=== PATIENT | male | born 1935 | race Caucasian/White ===

== ENCOUNTER 2017-08-25 11:03 | Inpatient (IN) | payer MEDICARE ==
[2017-08-25 12:00] LABS: #Lymphocytes 0.6 thou/uL (1.20-3.40); #Monocytes 0.5 thou/uL (0.11-0.59); #Neutrophils 2.4 thou/uL (1.40-6.50); %Eosinophils 0.5 % (0.0-10.0); %Lymphocytes 17.5 % (21.0-51.0); %Monocytes 13.7 % (0.0-10.0); %Neutrophils 67.4 % (42.0-75.0); Hemoglobin 14.2 g/dL (14.0-18.0); Mean Corpuscular HGB CONC 33.5 g/dL (32.0-36.0); Mean Corpuscular Hemoglobin 32.2 pg (27.0-31.0); Mean Corpuscular Volume 96.1 fl (80.0-94.0); Platelet Count 147 thou/uL (130-400); RBC Distribution Width 12.4 % (11.5-14.5); Red Blood Cell (RBC) Count 4.42 mill/uL (4.70-6.10); White Blood Cell (WBC) Count 3.6 thou/uL (4.8-10.8)
[2017-08-25 12:05] LABS: ALT (SGPT) 26 U/L (8-55); AST (SGOT) 33 U/L (5-34); Albumin 3.7 g/dL (3.4-4.8); Alkaline Phosphatase 124 U/L (40-150); Anion Gap 14 mmol/L (10-20); BUN (Urea Nitrogen) 19 mg/dL (8.4-25.7); Bilirubin, Total 0.5 mg/dL (0.2-1.2); CK (CPK) 445 U/L (30-200); Calc. Creatinine Clearance 0 mL/min (70-130); Calcium 8.3 mg/dL (7.8-10.44); Carbon Dioxide 26 mmol/L (23-31); Chloride 94 mmol/L (98-107); Estimated GFR-MDRD 76; Globulin 2.6 g/dL (2.4-3.5); Glucose 97 mg/dL (83-110); Lipase 13 U/L (8-78); Potassium 4.4 mmol/L (3.5-5.1); Protein, Total 6.3 g/dL (5.8-8.1); Sodium 130 mmol/L (136-145); Troponin I 0.037 ng/mL (< 0.028)
[2017-08-25 12:08] LABS: CKMB 8.6 ng/mL (0-6.6)
--- NOTE | 2017-08-25 12:13 | RAD ---
AP VIEW OF THE CHEST: INDICATIONS: History of cough. COMPARISON: Prior exam dated 10/29/2012. FINDINGS: Sternotomy changes are similar. Post CABG changes are similar. No air space consolidation is grossl y evident. Image detail is limited due to respiratory motion artifact. There is scattered degenerat nancy and osteoarthritic change. IMPRESSION: No focal consolidation to suggest pneumonia. POS: [facility]
[2017-08-25] MEDS ORDERED: Aspirin 325 MG TAB ONE (12:33)
[2017-08-25 12:55] LABS: INR-International Normal Ratio 1.3; PTT 45.6 SEC (22.9-36.1)
[2017-08-25] MEDS ORDERED: ISOVUE-370 76%-LOCM 1 ML ONE (13:06)
[2017-08-25 15:04] LABS: Troponin I 0.038 ng/mL (< 0.028)
[2017-08-25 15:42] VITALS: BMI 22.1
[2017-08-25] MEDS ORDERED: Bisacodyl 5 MG TAB PO PRN (16:50)
[2017-08-25] MEDS ORDERED: Senokot 8.6 MG TAB PO PRN (16:50)
[2017-08-25] MEDS: Sodium Chloride 0.9% 1,000 ML IV SCH ×2 (17:48→22:31)
[2017-08-25] MEDS: Warfarin Sodium 3 MG TAB PO SCH (17:49)
[2017-08-25] MEDS ORDERED: Dextromethorphan Polistirex 30 MG/5 ML (89 ML BOTTLE) PO PRN (18:05)
[2017-08-25 18:37] LABS: Troponin I 0.047 ng/mL (< 0.028)
--- NOTE | 2017-08-25 19:04 | CT ---
CT ANGIOGRAM CHEST INCLUDING 3D RENDERING 08/25/17 HISTORY: 82-year-old male with history of prior DVT on anticoagulation which is subtherapeutic. No significant CT evidence for acute pulmonary embolism. No evidence for aortic aneurysm. There are b ilateral mostly linear type parenchymal changes slightly more prominent in the right lower lobe, nons pecific, possibly some mild pneumonitis versus chronic change. There are some bilateral emphysema domenico nges. Old granuloma calcification changes are noted. Small hiatal hernia. No significant pleural effu geo or pericardial effusion. IMPRESSION: No significant CT evidence for acute pulmonary embolism. Some scattered more chronic appearing lung c hanges including some emphysema changes. POS: [facility]
[2017-08-25] MEDS: Famotidine/PF 20 mg/2ml Vial SLOW IVP SCH (20:46)
[2017-08-25] MEDS: Carvedilol 3.125 MG TAB PO SCH (20:48)
[2017-08-25] MEDS: Enoxaparin Sodium 80 MG/0.8 ML SYRINGE SC SCH (20:48)
[2017-08-25 21:29] LABS: Troponin I 0.031 ng/mL (< 0.028)
[2017-08-25 22:48] LABS: Bilirubin Negative (Negative); Blood, Urine Negative (Negative); Clarity CLEAR (Clear); Glucose, Urine (Dipstick) Negative (Negative); Leukocyte Negative (Negative); Nitrite Negative (Negative); Protein, Urine (Dipstick) 30 mg/dL (Neg-Trace); Urobilinogen 0.2 mg/dL (0.2-1.0); pH, Urine 5.5 (5.0-9.0)
[2017-08-25 22:49] LABS: Specific Gravity, Urine 1.058 (1.002-1.036)
[2017-08-25 22:55] LABS: Bacteria/HPF None Seen HPF (None Seen); Hyaline Casts/LPF 0-3 HYALINE CAST LPF (0-3 Hyaline); RBC/HPF 0-3 HPF (0-3); Squamous Epithelial 0-3 HPF (0-3); WBC/HPF 0-3 HPF (0-3)
[2017-08-26] MEDS: Benzonatate 100 MG CAP PO PRN ×3 (00:51→16:36)
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
[2017-08-26 05:26] LABS: INR-International Normal Ratio 1.5; Prothrombin Time 18.9 SEC (12.0-14.7)
[2017-08-26 05:35] LABS: Anion Gap 11 mmol/L (10-20); BUN (Urea Nitrogen) 16 mg/dL (8.4-25.7); Calc. Creatinine Clearance 94 mL/min (70-130); Calcium 7.5 mg/dL (7.8-10.44); Carbon Dioxide 21 mmol/L (23-31); Chloride 99 mmol/L (98-107); Estimated GFR-MDRD Greater than 90; Glucose 79 mg/dL (83-110); Potassium 4.2 mmol/L (3.5-5.1); Sodium 127 mmol/L (136-145)
[2017-08-26 07:13] LABS: #Lymphocytes 0.6 thou/uL (1.20-3.40); #Monocytes 0.4 thou/uL (0.11-0.59); #Neutrophils 1.7 thou/uL (1.40-6.50); %Eosinophils 1.7 % (0.0-10.0); %Lymphocytes 20.5 % (21.0-51.0); %Monocytes 13.1 % (0.0-10.0); %Neutrophils 64.8 % (42.0-75.0); Hemoglobin 12.8 g/dL (14.0-18.0); Mean Corpuscular HGB CONC 32.9 g/dL (32.0-36.0); Mean Corpuscular Hemoglobin 33.2 pg (27.0-31.0); Mean Platelet Volume 6.6 fL (7.4-10.4); PLT Morphology Comment Appears Decreased; Platelet Count 110 thou/uL (130-400); RBC Distribution Width 12.7 % (11.5-14.5); RBC Morphology Normal; Red Blood Cell (RBC) Count 3.86 mill/uL (4.70-6.10); White Blood Cell (WBC) Count 2.7 thou/uL (4.8-10.8)
[2017-08-26] MEDS: Digoxin 0.125 MG TAB PO SCH (10:19)
[2017-08-26] MEDS: Atenolol 25 MG TAB PO SCH (10:22)
[2017-08-26] MEDS: Carvedilol 3.125 MG TAB PO SCH ×2 (10:22→20:10)
[2017-08-26] MEDS: Enoxaparin Sodium 80 MG/0.8 ML SYRINGE SC SCH ×2 (10:22→20:10)
[2017-08-26] MEDS: Famotidine/PF 20 mg/2ml Vial SLOW IVP SCH ×2 (10:22→20:09)
[2017-08-26] MEDS: Doxazosin Mesylate 4 MG TAB PO SCH (10:26)
--- NOTE | 2017-08-26 12:01 | ULT ---
ULTRASOUND VENOUS BILATERAL DOPPLER: HISTORY: Shortness of breath. Evaluate for thrombosis. The patient has a history of deep venous thrombosis, c hronic. The patient also has a history of pulmonary emboli. COMPARISON: None. TECHNIQUE: Real-time, ambriz scale, color Doppler, and spectral analysis of the bilateral common femoral, femoral, proximal portion greater saphenous and deep femoral veins as well as the popliteal and posterior tib ial veins. FINDINGS: There is normal flow, augmentation, and compression of the majority of the veins bilaterally, except for the right posterior tibial vein with a chronic-appearing partial thrombosis. 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 POS: [facility]
[2017-08-26 14:24] LABS: Lactic Acid 1.1 mmol/L (0.5-2.2)
--- NOTE | 2017-08-26 15:23 | CON ---
DATE OF CONSULTATION: 08/26/2017 INDICATION FOR CONSULTATION: This is an 82-year-old patient who was admitted with influenza, has not been feeling well for some time, also history of coronary artery disease, has slight increase in cardiac enzymes. We were asked to see him due to the cardiac enzyme elevation and history of coronary artery disease. HISTORY OF PRESENT ILLNESS: This is a very pleasant 82-year-old gentleman who has been followed by me for quite some time. He has undergone bypass surgery in the past. His last cardiac catheterization was in 2012, at which time, we also evaluated his saphenous vein grafts. He had a saphenous vein graft to the distal right coronary artery which had some distal plaque and the actual cocopah vessel beyond the anastomotic site. He also had a SETH without stenosis, left anterior descending artery and saphenous vein graft to the obtuse marginal, left circumflex valve stenosis, and there was no distal stenosis noted either. Ejection fraction was estimated at 50-55%. He did have a saphenous vein graft to a diagonal branch which was occluded. He has been doing quite well. He was seen in the office last in 10/2016 without complaints. He has had a history of paroxysmal atrial fibrillation in the past and has been on medical management for this. Otherwise, he has been doing stable. He denied any chest pain at this time, but said he has not been feeling well for about a week and had some coughing. He presented to the hospital and was noted on evaluation to have influenza B. His white blood cell count is actually low, he may actually be trending toward pneumonia or sepsis. PAST MEDICAL HISTORY: Significant for dyslipidemia, coronary artery disease, hypertension, bypass surgery, paroxysmal atrial fibrillation. 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 He has had DVT. He has had history of shingles. He has had an ablation of SVT in 2013. He has also had pulmonary vein isolation for atrial fibrillation in 2013. He has had EGD and colonoscopy. ALLERGIES: He has no known drug allergies. MEDICATIONS: Prior to admission; he was taking Coumadin, isosorbide mononitrate , Tylenol Arthritis, pain medicine, carvedilol 6.25 mg half tablet b.i.d., and pravastatin 40 mg a day. REVIEW OF SYSTEMS: Twelve point review of systems is unremarkable except what was noted in the history of present illness for he is not feeling well and coughing. He has also complained of some mild fevers recently. PHYSICAL EXAMINATION: GENERAL: Reveals a well-developed and well-nourished gentleman, who is in no acute distress at this time. He is alert and oriented. HEENT: Shows the head to be normocephalic and atraumatic. Carotid pulses are present. CHEST: Has diffuse wheezing expiratory throughout with some scattered rales. CARDIOVASCULAR: Heart sounds are distant, but he does appear to be regular at this time. There were no significant murmurs, heaves, thrills, bruits, or rubs. ABDOMEN: Soft and nontender. Positive bowel sounds are present. EXTREMITIES: Showed no clubbing or cyanosis. Pedal pulses are present. NEUROLOGIC: The patient appears to be intact. Do not see any focal deficits. SKIN: Warm and dry at this time. LABORATORY DATA: Shows WBC 2.7, hemoglobin 12.8. Sodium is 127, creatinine 0.68. Troponin I was 0.38, increased up to 0.47, down to 0.031. Chest x-ray, no acute changes. INR was 1.5. IMPRESSION: 1. Influenza A with elevated temperature and possible early sepsis or pneumonia , but chest x-ray does not show pneumonia, but it could be becoming septic. He has now being treated with I believe antibiotics and this time, most likely the elevated cardiac enzymes have been due to the fever and overall coughing and his overall illness at this time. His EKG shows a bundle branch block, unable to determine if he has any acute changes, I do not seen any. 2. Hypertension, which is under very good control at this time and is reasonable, is slightly elevated on admission, but appears to also be reasonable. 3. Intermittent atrial fibrillation in which he has actually had some episodes since being here. His INR is 1.5. We are trying to shoot for an INR of 2-3 on this gentleman; however, at this time with the antibiotics on board and his illness, this may increase further. 4. History of coronary artery disease. This appears to be stable at this time. 5. Hypercholesterolemia. We will continue his medications. Previously he had an LDL of 120 and has been placed on pravastatin, but prior to that he had not been taking the medications as ordered. At this time, he appears to be from a cardiac standpoint overall stable. We will be more than happy to continue to follow the patient with you. MTDD
[2017-08-26] MEDS: Sodium Chloride 0.9% 1,000 ML IV SCH (15:53)
--- NOTE | 2017-08-26 15:58 | PDOC.PN ---
- Subjective Encounter Start Date: 08/26/17 Encounter Start Time: 10:57 Subjective: nsg notes rev, nikos ovn - feels generally poorly, did not sleep until 6am -: still has a significant cough productive of sputum, no SOB, no CP - Objective Resuscitation Status: Resuscitation Status FULL:Full Resuscitation Vital Signs & Weight: Vital Signs (12 hours) Temp Pulse Resp BP BP BP BP 08/26/17 15:20 97.1 F L 60 20 129/69 08/26/17 12:48 60 08/26/17 12:10 98.5 F 63 12 146/57 H 100/56 L 120/64 08/26/17 10:36 74 16 08/26/17 10:19 78 08/26/17 08:00 98.8 F 61 20 08/26/17 07:28 98.8 F 61 20 154/69 H 08/26/17 04:23 98.1 F 79 18 143/72 H Pulse Ox 08/26/17 15:20 93 L 08/26/17 12:48 88 L 08/26/17 12:10 92 L 08/26/17 10:36 08/26/17 10:19 08/26/17 08:00 08/26/17 07:28 92 L 08/26/17 04:23 90 L Weight Weight 171 lb 14.4 oz I&O: 08/25/17 08/26/17 08/27/17 06:59 06:59 06:59 Intake Total 2166 Output Total 350 Balance 1816 Result Diagrams: 08/26/17 04:26 08/26/17 04:26 Phys Exam - Physical Examination Constitutional: NAD HEENT: PERRLA, moist MMs Respiratory: no wheezing, no rhonchi mild coarseness Cardiovascular: RRR, no significant murmur, no rub Gastrointestinal: soft, non-tender, no distention, positive bowel sounds Musculoskeletal: no edema, pulses present Neurological: moves all 4 limbs Dx/Plan (1) Leukopenia Code(s): D72.819 - DECREASED WHITE BLOOD CELL COUNT, UNSPECIFIED Status: Acute (2) Influenza Code(s): J11.1 - FLU DUE TO UNIDENTIFIED INFLUENZA VIRUS W OTH RESP MANIFEST Status: Acute (3) Elevated troponin Code(s): R74.8 - ABNORMAL LEVELS OF OTHER SERUM ENZYMES Status: Acute (4) Sepsis Code(s): A41.9 - SEPSIS, UNSPECIFIED ORGANISM Status: Acute - Plan * 82M who initially presented with a CC of progressively worsening cough * influenza B +, was initially felt to be out of the treatment window for Tamiflu, but given progression towards potentially evolving sepsis, will initiate Tamiflu for severity of illness sepsis with leukopenia, hypoxia, source of infection as above * see discussion above * will also initiate levaquin for possibly bronchitis which would not necessarily be visible on radiological imaging * pending sputum cx leukopenia, as above hx CABG, stable elevated troponin * apprec cardiology c/s * close hemodynamic monitoring hx afib * cont with A/C, full dose lovenox while INR <2 (curr 1.5) * currently well rate controlled diet: as harsh dvt ppx: on full a/c activity: as harsh Review of Systems - Medications/Allergies Allergies/Adverse Reactions: Allergies Allergy/AdvReac Type Severity Reaction Status Date / Time Influenza Virus Vaccines Allergy Severe Anaphylaxis Verified 08/25/17 15:36 Medications: Current Medications Acetaminophen (Tylenol) 650 mg PO Q4H PRN PRN Reason: Headache/Fever or Pain Albuterol/Ipratropium (Duoneb) 3 ml NEB [id number] PRN PRN Reason: SOB &/or Wheezing Last Admin: 08/26/17 10:36 Dose: 3 ml Atenolol (Tenormin) 25 mg PO DAILY [facility] Last Admin: 08/26/17 10:22 Dose: 25 mg Benzonatate (Tessalon) 100 mg PO TIDPRN PRN PRN Reason: Cough Last Admin: 08/26/17 10:19 Dose: 100 mg Bisacodyl (Dulcolax) 10 mg PO DAILYPRN PRN PRN Reason: Constipation Carvedilol (Coreg) 3.125 mg PO BID [facility] Last Admin: 08/26/17 10:22 Dose: 3.125 mg Dextromethorphan Polistirix (Delsym 30 Mg/5 Ml 89 Ml Bot) 15 mg PO TID PRN PRN Reason: Cough Last Admin: 08/25/17 20:46 Dose: 15 mg Digoxin (Lanoxin) 0.125 mg PO DAILY [facility] Last Admin: 08/26/17 10:19 Dose: 0.125 mg Doxazosin Mesylate (Cardura) 4 mg PO DAILY [facility] Last Admin: 08/26/17 10:26 Dose: 4 mg Enoxaparin Sodium (Lovenox) 80 mg SC 0900,2100 [facility] Last Admin: 08/26/17 10:22 Dose: 80 mg Famotidine (Pepcid) 20 mg SLOW IVP Q12HR [facility] Last Admin: 08/26/17 10:22 Dose: 20 mg Sodium Chloride (Normal Saline 0.9%) 1,000 mls @ 150 mls/hr IV .Q6H40M [facility] Last Admin: 08/26/17 15:53 Dose: 1,000 mls Miscellaneous Medication (Pharmacy To Dose) 1 each IVPB PRN PRN PRN Reason: Pharmacy to dose Oseltamivir Phosphate (Tamiflu) 75 mg PO BID [facility] Stop: 08/31/17 09:01 Senna (Senokot) 2 tab PO HSPRN PRN PRN Reason: Constipation Sodium Chloride (Flush - Normal Saline) 10 ml IVF Q12HR [facility] Sodium Chloride (Flush - Normal Saline) 10 ml IVF PRN PRN PRN Reason: Saline Flush Warfarin Sodium (Coumadin) 3 mg PO 1700 [facility] Last Admin: 08/25/17 17:49 Dose: 3 mg
[2017-08-26] MEDS: Warfarin Sodium 3 MG TAB PO SCH (16:36)
[2017-08-26] MEDS: Acetaminophen 325 MG TAB PO PRN (16:37)
[2017-08-26] MEDS: Oseltamivir 75 MG CAP PO SCH (20:09)
[2017-08-27] MEDS: Acetaminophen 325 MG TAB PO PRN (01:39)
[2017-08-27] MEDS: Oseltamivir 75 MG CAP PO SCH ×3 (01:40→21:01)
[2017-08-27] MEDS: Famotidine/PF 20 mg/2ml Vial SLOW IVP SCH ×3 (01:40→21:01)
[2017-08-27] MEDS: Sodium Chloride 0.9% 1,000 ML IV SCH ×4 (01:40→18:23)
[2017-08-27] MEDS: Carvedilol 3.125 MG TAB PO SCH ×3 (01:40→21:01)
[2017-08-27] MEDS: Enoxaparin Sodium 80 MG/0.8 ML SYRINGE SC SCH ×3 (01:47→21:01)
[2017-08-27] MEDS: Doxazosin Mesylate 4 MG TAB PO SCH (08:36)
[2017-08-27] MEDS: Digoxin 0.125 MG TAB PO SCH (08:36)
[2017-08-27] MEDS: Atenolol 25 MG TAB PO SCH (08:36)
[2017-08-27 16:33] LABS: #Lymphocytes 0.5 thou/uL (1.20-3.40); #Monocytes 0.3 thou/uL (0.11-0.59); #Neutrophils 1.8 thou/uL (1.40-6.50); %Eosinophils 0.4 % (0.0-10.0); %Lymphocytes 17.9 % (21.0-51.0); %Monocytes 10.8 % (0.0-10.0); %Neutrophils 70.8 % (42.0-75.0); Mean Corpuscular HGB CONC 33.2 g/dL (32.0-36.0); Mean Corpuscular Hemoglobin 33.6 pg (27.0-31.0); Mean Platelet Volume 6.8 fL (7.4-10.4); Platelet Count 100 thou/uL (130-400); RBC Distribution Width 12.6 % (11.5-14.5); Red Blood Cell (RBC) Count 4.17 mill/uL (4.70-6.10); White Blood Cell (WBC) Count 2.6 thou/uL (4.8-10.8)
[2017-08-27 16:44] LABS: Anion Gap 11 mmol/L (10-20); BUN (Urea Nitrogen) 14 mg/dL (8.4-25.7); Calc. Creatinine Clearance 90 mL/min (70-130); Calcium 7.7 mg/dL (7.8-10.44); Carbon Dioxide 24 mmol/L (23-31); Chloride 95 mmol/L (98-107); Estimated GFR-MDRD Greater than 90; Glucose 100 mg/dL (83-110); Potassium 4.3 mmol/L (3.5-5.1); Sodium 126 mmol/L (136-145)
[2017-08-27] MEDS: Warfarin Sodium 3 MG TAB PO SCH (17:26)
--- NOTE | 2017-08-27 22:50 | PDOC.PN ---
- Subjective Encounter Start Date: 08/27/17 Encounter Start Time: 15:00 Subjective: nsg notes rev - some episodic agitation overnight, currently daughters -: in room, endorse baseline emotional and mental status for patient -: pt no new c/o other than feeling weak - Objective Resuscitation Status: Resuscitation Status FULL:Full Resuscitation Vital Signs & Weight: Vital Signs (12 hours) Temp Pulse Resp BP BP BP BP 08/27/17 20:00 98.4 F 68 18 148/71 H 08/27/17 18:50 98.0 F 62 20 156/93 H 08/27/17 15:44 97.5 F L 66 18 151/100 H 08/27/17 12:32 64 156/74 H 162/77 H 171/79 H 08/27/17 11:56 97.4 F L 63 18 167/81 H Pulse Ox 08/27/17 20:00 91 L 08/27/17 18:50 93 L 08/27/17 15:44 96 08/27/17 12:32 08/27/17 11:56 90 L Weight Weight 173 lb 6.4 oz I&O: 08/26/17 08/27/17 08/28/17 06:59 06:59 06:59 Intake Total 2166 4295 1650 Output Total 350 2 Balance 1816 4293 1650 Result Diagrams: 08/27/17 16:05 08/27/17 16:05 Phys Exam - Physical Examination Constitutional: NAD HEENT: PERRLA, moist MMs Respiratory: no rales, no rhonchi end exp wheezing throughout Cardiovascular: RRR, no significant murmur, no rub Gastrointestinal: soft, non-tender, no distention, positive bowel sounds Musculoskeletal: no edema, pulses present Neurological: moves all 4 limbs Psychiatric: A&O x 3 Dx/Plan (1) Leukopenia Code(s): D72.819 - DECREASED WHITE BLOOD CELL COUNT, UNSPECIFIED Status: Acute (2) Influenza Code(s): J11.1 - FLU DUE TO UNIDENTIFIED INFLUENZA VIRUS W OTH RESP MANIFEST Status: Acute (3) Elevated troponin Code(s): R74.8 - ABNORMAL LEVELS OF OTHER SERUM ENZYMES Status: Acute (4) Sepsis Code(s): A41.9 - SEPSIS, UNSPECIFIED ORGANISM Status: Acute - Plan cont current plan of care, plan discussed w/ family, continue antibiotics, respiratory therapy, out of bed/ambulate * 82M who initially presented with a CC of progressively worsening cough * influenza B +, was initially felt to be out of the treatment window for Tamiflu, but given progression towards potentially evolving sepsis, will initiate Tamiflu for severity of illness sepsis with leukopenia, hypoxia, source of infection as above * see discussion above * will also initiate levaquin for possibly bronchitis which would not necessarily be visible on radiological imaging * pending sputum cx leukopenia, as above, continue to monitor hx CABG, stable elevated troponin likely reflective of demand ischemia * apprec cardiology c/s * close hemodynamic monitoring * D/W Dr. Marcano hx afib * cont with A/C, full dose lovenox while INR <2 (not drawn today, will recheck in AM) * currently well rate controlled diet: as harsh dvt ppx: on full a/c activity: as harsh Review of Systems - Medications/Allergies Allergies/Adverse Reactions: Allergies Allergy/AdvReac Type Severity Reaction Status Date / Time Influenza Virus Vaccines Allergy Severe Anaphylaxis Verified 08/25/17 15:36 Medications: Current Medications Acetaminophen (Tylenol) 650 mg PO Q4H PRN PRN Reason: Headache/Fever or Pain Last Admin: 08/27/17 01:39 Dose: 650 mg Albuterol/Ipratropium (Duoneb) 3 ml NEB [id number] PRN PRN Reason: SOB &/or Wheezing Last Admin: 08/27/17 02:29 Dose: 3 ml Atenolol (Tenormin) 25 mg PO DAILY [facility] Last Admin: 08/27/17 08:36 Dose: 25 mg Benzonatate (Tessalon) 100 mg PO TIDPRN PRN PRN Reason: Cough Last Admin: 08/26/17 16:36 Dose: 100 mg Bisacodyl (Dulcolax) 10 mg PO DAILYPRN PRN PRN Reason: Constipation Carvedilol (Coreg) 3.125 mg PO BID [facility] Last Admin: 08/27/17 21:01 Dose: 3.125 mg Dextromethorphan Polistirix (Delsym 30 Mg/5 Ml 89 Ml Bot) 15 mg PO TID PRN PRN Reason: Cough Last Admin: 08/25/17 20:46 Dose: 15 mg Digoxin (Lanoxin) 0.125 mg PO DAILY [facility] Last Admin: 08/27/17 08:36 Dose: 0.125 mg Doxazosin Mesylate (Cardura) 4 mg PO DAILY [facility] Last Admin: 08/27/17 08:36 Dose: 4 mg Enoxaparin Sodium (Lovenox) 80 mg SC 0900,2100 [facility] Last Admin: 08/27/17 21:01 Dose: 80 mg Famotidine (Pepcid) 20 mg SLOW IVP Q12HR [facility] Last Admin: 08/27/17 21:01 Dose: 20 mg Sodium Chloride (Normal Saline 0.9%) 1,000 mls @ 150 mls/hr IV .Q6H40M [facility] Last Admin: 08/27/17 18:23 Dose: 1,000 mls Levofloxacin (Levaquin) 500 mg PO 0600 [facility] Last Admin: 08/27/17 01:40 Dose: 500 mg Miscellaneous Medication (Pharmacy To Dose) 1 each IVPB PRN PRN PRN Reason: Pharmacy to dose Oseltamivir Phosphate (Tamiflu) 75 mg PO BID [facility] Stop: 08/31/17 09:01 Last Admin: 08/27/17 21:01 Dose: 75 mg Prednisone (Prednisone) 50 mg PO QAM-WM [facility] Senna (Senokot) 2 tab PO HSPRN PRN PRN Reason: Constipation Sodium Chloride (Flush - Normal Saline) 10 ml IVF Q12HR [facility] Last Admin: 08/27/17 21:01 Dose: Not Given Sodium Chloride (Flush - Normal Saline) 10 ml IVF PRN PRN PRN Reason: Saline Flush Warfarin Sodium (Coumadin) 3 mg PO 1700 [facility] Last Admin: 08/27/17 17:26 Dose: 3 mg
[2017-08-28 06:17] LABS: #Lymphocytes 0.6 thou/uL (1.20-3.40); #Monocytes 0.3 thou/uL (0.11-0.59); #Neutrophils 1.4 thou/uL (1.40-6.50); %Eosinophils 0.7 % (0.0-10.0); %Lymphocytes 26.4 % (21.0-51.0); %Neutrophils 60.9 % (42.0-75.0); Hemoglobin 13.9 g/dL (14.0-18.0); Mean Corpuscular HGB CONC 33.2 g/dL (32.0-36.0); Mean Corpuscular Hemoglobin 33.1 pg (27.0-31.0); Mean Corpuscular Volume 99.5 fl (80.0-94.0); Mean Platelet Volume 6.9 fL (7.4-10.4); Platelet Count 102 thou/uL (130-400); RBC Distribution Width 12.6 % (11.5-14.5); White Blood Cell (WBC) Count 2.3 thou/uL (4.8-10.8)
[2017-08-28 06:23] LABS: Anion Gap 12 mmol/L (10-20); BUN (Urea Nitrogen) 12 mg/dL (8.4-25.7); Calc. Creatinine Clearance 106 mL/min (70-130); Calcium 7.6 mg/dL (7.8-10.44); Carbon Dioxide 21 mmol/L (23-31); Chloride 97 mmol/L (98-107); Estimated GFR-MDRD Greater than 90; Glucose 75 mg/dL (83-110); Potassium 3.9 mmol/L (3.5-5.1); Sodium 126 mmol/L (136-145)
[2017-08-28 06:30] LABS: INR-International Normal Ratio 1.8; Prothrombin Time 21.6 SEC (12.0-14.7)
[2017-08-28] MEDS: Atenolol 25 MG TAB PO SCH (08:37)
[2017-08-28] MEDS: predniSONE 50 MG TAB PO SCH (08:37)
[2017-08-28] MEDS: Famotidine/PF 20 mg/2ml Vial SLOW IVP SCH ×2 (08:38→21:05)
[2017-08-28] MEDS: Digoxin 0.125 MG TAB PO SCH (08:38)
[2017-08-28] MEDS: Doxazosin Mesylate 4 MG TAB PO SCH (08:38)
[2017-08-28] MEDS: Carvedilol 3.125 MG TAB PO SCH ×2 (08:38→21:05)
[2017-08-28] MEDS: Oseltamivir 75 MG CAP PO SCH ×2 (09:50→21:05)
[2017-08-28] MEDS: Enoxaparin Sodium 80 MG/0.8 ML SYRINGE SC SCH ×2 (09:50→21:05)
--- NOTE | 2017-08-28 12:04 | PDOC.PN ---
- Subjective Encounter Start Date: 08/28/17 Encounter Start Time: 12:03 Subjective: nsg notes rev, nikos ovn, feels like the cough is still just as bad -: otherwise no new c/o - Objective Resuscitation Status: Resuscitation Status FULL:Full Resuscitation Vital Signs & Weight: Vital Signs (12 hours) Temp Pulse Resp BP BP BP Pulse Ox 08/28/17 08:38 64 08/28/17 08:37 65 145/76 H 08/28/17 08:00 97.9 F 65 12 145/76 H 91 L 08/28/17 07:57 97.9 F 65 12 91 L 08/28/17 04:35 97.6 F 64 18 133/74 93 L Weight Weight 173 lb 6.4 oz I&O: 08/27/17 08/28/17 08/29/17 06:59 06:59 06:59 Intake Total 4295 1890 Output Total 2 Balance 4293 1890 Result Diagrams: 08/28/17 05:14 08/28/17 05:14 Dx/Plan (1) Leukopenia Code(s): D72.819 - DECREASED WHITE BLOOD CELL COUNT, UNSPECIFIED Status: Acute (2) Influenza Code(s): J11.1 - FLU DUE TO UNIDENTIFIED INFLUENZA VIRUS W OTH RESP MANIFEST Status: Acute (3) Elevated troponin Code(s): R74.8 - ABNORMAL LEVELS OF OTHER SERUM ENZYMES Status: Acute (4) Sepsis Code(s): A41.9 - SEPSIS, UNSPECIFIED ORGANISM Status: Acute - Plan * . Review of Systems - Medications/Allergies Allergies/Adverse Reactions: Allergies Allergy/AdvReac Type Severity Reaction Status Date / Time Influenza Virus Vaccines Allergy Severe Anaphylaxis Verified 08/25/17 15:36 Medications: Current Medications Acetaminophen (Tylenol) 650 mg PO Q4H PRN PRN Reason: Headache/Fever or Pain Last Admin: 08/27/17 01:39 Dose: 650 mg Albuterol/Ipratropium (Duoneb) 3 ml NEB [id number] PRN PRN Reason: SOB &/or Wheezing Last Admin: 08/27/17 02:29 Dose: 3 ml Atenolol (Tenormin) 25 mg PO DAILY [facility] Last Admin: 08/28/17 08:37 Dose: 25 mg Benzonatate (Tessalon) 100 mg PO TIDPRN PRN PRN Reason: Cough Last Admin: 08/26/17 16:36 Dose: 100 mg Bisacodyl (Dulcolax) 10 mg PO DAILYPRN PRN PRN Reason: Constipation Carvedilol (Coreg) 3.125 mg PO BID [facility] Last Admin: 08/28/17 08:38 Dose: 3.125 mg Dextromethorphan Polistirix (Delsym 30 Mg/5 Ml 89 Ml Bot) 15 mg PO TID PRN PRN Reason: Cough Last Admin: 08/25/17 20:46 Dose: 15 mg Digoxin (Lanoxin) 0.125 mg PO DAILY [facility] Last Admin: 08/28/17 08:38 Dose: 0.125 mg Doxazosin Mesylate (Cardura) 4 mg PO DAILY [facility] Last Admin: 08/28/17 08:38 Dose: 4 mg Enoxaparin Sodium (Lovenox) 80 mg SC 0900,2100 [facility] Last Admin: 08/28/17 09:50 Dose: 80 mg Famotidine (Pepcid) 20 mg SLOW IVP Q12HR [facility] Last Admin: 08/28/17 08:38 Dose: 20 mg Levofloxacin (Levaquin) 500 mg PO 0600 [facility] Last Admin: 08/28/17 05:49 Dose: 500 mg Miscellaneous Medication (Pharmacy To Dose) 1 each IVPB PRN PRN PRN Reason: Pharmacy to dose Oseltamivir Phosphate (Tamiflu) 75 mg PO BID [facility] Stop: 08/31/17 09:01 Last Admin: 08/28/17 09:50 Dose: 75 mg Prednisone (Prednisone) 50 mg PO QAM-WM [facility] Last Admin: 08/28/17 08:37 Dose: 50 mg Senna (Senokot) 2 tab PO HSPRN PRN PRN Reason: Constipation Sodium Chloride (Flush - Normal Saline) 10 ml IVF Q12HR [facility] Last Admin: 08/28/17 08:42 Dose: 10 ml Sodium Chloride (Flush - Normal Saline) 10 ml IVF PRN PRN PRN Reason: Saline Flush Warfarin Sodium (Coumadin) 3 mg PO 1700 [facility] Last Admin: 08/27/17 17:26 Dose: 3 mg
[2017-08-28] MEDS: Warfarin Sodium 3 MG TAB PO SCH (16:21)
[2017-08-28] MEDS: Benzonatate 100 MG CAP PO PRN (16:25)
[2017-08-28] MEDS: Acetaminophen 325 MG TAB PO PRN (16:25)
[2017-08-29 06:08] LABS: INR-International Normal Ratio 2.2; Prothrombin Time 25.5 SEC (12.0-14.7)
--- NOTE | 2017-08-29 08:24 | PDOC.CTH ---
<Almaz Hicks - Last Filed: 08/29/17 08:21> Cardiology Progress Note - Subjective The pt seen and examined. No overnight events. No cardiac complaints. He complains of sharp paint to Lt lower ribs when he coughs. He would like to know when he can go home. - Objective Vital Signs Temp Pulse Resp BP Pulse Ox 08/29/17 05:36 94 L 08/29/17 03:57 97.5 F L 65 16 117/68 94 L 08/29/17 00:00 97.5 F L 65 18 163/90 H 95 Weight 173 lb 6.4 oz 08/28/17 08/29/17 08/30/17 06:59 06:59 06:59 Intake Total 1890 1100 Balance 1890 1100 - Physical Examination General/Neuro: alert & oriented x3 Neck: no JVD present Lungs: other: (diminished at bases) Heart: RRR Abdomen: soft Extremities: other: (No edema) - Labs Result Diagrams: 08/28/17 05:14 08/28/17 05:14 Troponin/CKMB CK-MB (CK-2) 8.6 ng/mL (0-6.6) H* 08/25/17 11:38 Troponin I 0.031 ng/mL (< 0.028) H 08/25/17 20:47 - Assessment/Plan 1. Influenza B - on Tamiflu; managed by PCP 2. Paroxysmal Afib - Hx of several AFib episode during this admission; on Dig, Coumadin, Atenolol, and Coreg; INR today is 2.2; Coumadin dose is managed by PCP 3. CAD with Hx of CABG - stable; cont. monitor 4. HTN - stable with current medication; cont. monitor 5. Hyperlipidemia - on Statin; 6. 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 MAR reviewed Review of Systems - Review of Systems Constitutional: reports: no symptoms reported EENTM: reports: no symptoms reported Respiratory: reports: see HPI Cardiac (ROS): reports: no symptoms reported ABD/GI: reports: blood streaked bowels : reports: no symptoms reported <Yecenia Pepe - Last Filed: 08/29/17 21:59> Cardiology Progress Note - Objective Vital Signs Temp Pulse Resp BP BP Pulse Ox 08/29/17 17:16 97.7 F 96 20 137/70 96 08/29/17 11:46 97.6 F 64 16 135/80 93 L Weight 173 lb 6.4 oz 08/28/17 08/29/17 08/30/17 06:59 06:59 06:59 Intake Total 1890 1100 Balance 1890 1100 - Labs Result Diagrams: 08/28/17 05:14 08/28/17 05:14 Troponin/CKMB CK-MB (CK-2) 8.6 ng/mL (0-6.6) H* 08/25/17 11:38 Troponin I 0.031 ng/mL (< 0.028) H 08/25/17 20:47 - Assessment/Plan Pt. seen and eval. by me. He is feeling better and plans to go home today. I agree with the A/P by the DIRECTOR OF BLOOD.
[2017-08-29] MEDS: predniSONE 50 MG TAB PO SCH (08:56)
[2017-08-29] MEDS: Oseltamivir 75 MG CAP PO SCH (08:57)
[2017-08-29] MEDS: Carvedilol 3.125 MG TAB PO SCH (08:57)
[2017-08-29] MEDS: Atenolol 25 MG TAB PO SCH (08:57)
[2017-08-29] MEDS: Famotidine/PF 20 mg/2ml Vial SLOW IVP SCH (08:57)
[2017-08-29] MEDS: Digoxin 0.125 MG TAB PO SCH (08:57)
[2017-08-29] MEDS: Enoxaparin Sodium 80 MG/0.8 ML SYRINGE SC SCH (08:57)
[2017-08-29] MEDS: Acetaminophen 325 MG TAB PO PRN (09:00)
[2017-08-29] MEDS: Doxazosin Mesylate 4 MG TAB PO SCH (09:09)
[2017-08-29] MEDS: Benzonatate 100 MG CAP PO PRN (11:41)
[2017-08-29 17:18] VITALS: BP 137/70; TEMP 97.7
[2017-08-29] MEDS: Warfarin Sodium 3 MG TAB PO SCH (17:18)
== END 2017-08-29 17:33 | disposition home or self-care (01) | DRG 872 ==
LOC: SCSER 11:03 → OBSVTOIN 13:09 → 2SW 13:09 → SURG B 08-27 19:02
PROVIDERS: ADMIT Internal Medicine; ATTEND Internal Medicine
DX: A41.9 Sepsis, unspecified organism (principal); I24.8 Other forms of acute ischemic heart disease; I48.0 Paroxysmal atrial fibrillation; I82.541 Chronic embolism and thrombosis of right tibial vein; J10.1 Influenza due to other identified influenza virus with other respiratory manifestations; I25.10 Atherosclerotic heart disease of native coronary artery without angina pectoris; I10 Essential (primary) hypertension; R74.8 Abnormal levels of other serum enzymes; Z95.1 Presence of aortocoronary bypass graft; K21.9 Gastro-esophageal reflux disease without esophagitis; Z87.891 Personal history of nicotine dependence; Z79.01 Long term (current) use of anticoagulants; E78.00 Pure hypercholesterolemia, unspecified
CPT/HCPCS: 36415; 71045; 71275; 80048; 80053; 81003; 81015; 82550; 82553; 83605; 83690; 83880; 84484; 85025; 85610; 85730; 87040; 89220; 93005; 93970; 94640; 94760; 96361; 96365; A4216; J1650; J1956; J7620; S0028

== ENCOUNTER 2017-10-06 14:29 | Outpatient (CLI) | payer MEDICARE ==
[2017-10-06 15:18] LABS: Chloride 100 mmol/L (98-107); Potassium 4.5 mmol/L (3.5-5.1); Sodium 136 mmol/L (136-145)
[2017-10-06 15:19] LABS: Calcium 8.8 mg/dL (7.8-10.44); Glucose 151 mg/dL (83-110)
[2017-10-06 15:21] LABS: Carbon Dioxide 28 mmol/L (23-31)
[2017-10-06 15:22] LABS: Calc. Creatinine Clearance 0 mL/min (70-130); Estimated GFR-MDRD 89
[2017-10-06 15:23] LABS: BUN (Urea Nitrogen) 11 mg/dL (8.4-25.7)
[2017-10-06 15:50] LABS: Anion Gap 15 mmol/L (10-20)
== END 2017-10-06 14:30 | disposition home or self-care (01) ==
LOC: LABBT 14:29
PROVIDERS: ATTEND Internal Medicine Cardiovascular Disease
DX: Z51.81 Encounter for therapeutic drug level monitoring (principal); I26.99 Other pulmonary embolism without acute cor pulmonale; I48.91 Unspecified atrial fibrillation; Z79.01 Long term (current) use of anticoagulants
CPT/HCPCS: 80048

== ENCOUNTER 2017-10-07 05:50 | Day surgery (SDC) | payer MEDICARE ==
[2017-10-04 08:44] VITALS: BMI 21.7
[2017-10-07] MEDS ORDERED: PROPOFOL 20 ML ONE (08:05)
[2017-10-07] MEDS ORDERED: PROPOFOL 0 ML ONE (08:05)
--- NOTE | 2017-10-07 11:49 | OP ---
DATE OF PROCEDURE: 10/07/2017, as an outpatient. INDICATION FOR PROCEDURE: This patient, who presented with a history of atrial fibrillation/flutter. He appears to be in flutter. He was advised to undergo cardioversion. He was taken to the recovery area, where he was given short acting propofol. Using only one attempt to 100 joules, he was successfully converted back to normal sinus rhythm. There were no difficulties or complications encountered. LESLY
--- NOTE | 2017-10-07 12:48 | DIS ---
The patient was seen in the outpatient setting today to undergo electrical cardioversion of atrial fl utter/fibrillation. PRIMARY DIAGNOSES: 1. Atrial fibrillation/flutter. 2. History of coronary artery disease. 3. Status post bypass surgery x5. 4. History of bilateral pulmonary emboli. 5. History of ablation of supraventricular tachycardia. 6. Ablation of atrial fibrillation. DISCHARGE DIAGNOSES: 1. Atrial fibrillation/flutter. 2. History of coronary artery disease. 3. Status post bypass surgery x5. 4. History of bilateral pulmonary emboli. 5. History of ablation of supraventricular tachycardia. 6. Ablation of atrial fibrillation. PROCEDURES IN HOSPITAL: Included electrocardioversion of atrial fibrillation and atrial flutter back to normal sinus rhythm with one attempt at 100 joules. DISCHARGE MEDICATIONS: Discharge medications will be the same as his admission medications; they inc lude doxazosin 4 mg daily, Coumadin 3 mg daily to keep an INR between 2 and 3, Tylenol Arthritis 2 ta blets daily 650 mg, carvedilol 6.25 mg half a tablet b.i.d., digoxin 0.125 mg daily. His followup will be with me in the office in about 1 week. He will continue his routine followups w ith his primary care physician. He will see me back in about a month. He will continue with his pascual gooden followup with his primary care physician, he will see him in a month. If he remains stable, he will be discharged in the next 1-2 hours once his vital signs remain stable. There were no complications or difficulties during the procedure.
[2017-10-07] MEDS ORDERED: PROPOFOL 200 MG/20 ML VIAL ONE (18:29)
--- NOTE | 2017-10-11 20:12 | EKG ---
Test Reason : POST CARDIOVERSION Blood Pressure : / mmHG Vent. Rate : 070 BPM Atrial Rate : 070 BPM P-R Int : 206 ms QRS Dur : 094 ms QT Int : 386 ms P-R-T Axes : 086 076 083 degrees QTc Int : 416 ms Sinus rhythm with Fusion complexes Otherwise normal ECG When compared with ECG of 25-AUG-2017 11:35, (Unconfirmed) Sinus rhythm has replaced Atrial fibrillation Right bundle branch block is no longer Present Criteria for Septal infarct are no longer Present Confirmed by GAB MORE (2) on 10/11/2017 8:12:25 PM Referred By: ABDON Confirmed By:GAB MORE
== END 2017-10-07 09:30 | disposition home or self-care (01) ==
LOC: CCL 05:50
PROVIDERS: ATTEND Internal Medicine Cardiovascular Disease
PROC: 5A2204Z Restoration of Cardiac Rhythm, Single (ICD-10-PCS; principal; 2017-10-07)
DX: I48.0 Paroxysmal atrial fibrillation (principal); I25.10 Atherosclerotic heart disease of native coronary artery without angina pectoris; I10 Essential (primary) hypertension; E78.5 Hyperlipidemia, unspecified; K21.9 Gastro-esophageal reflux disease without esophagitis; Z95.1 Presence of aortocoronary bypass graft; Z88.7 Allergy status to serum and vaccine; Z98.890 Other specified postprocedural states; Z87.891 Personal history of nicotine dependence
CPT/HCPCS: 92960; 93005; 93010; J2704

== ENCOUNTER 2019-02-21 14:13 | Outpatient (CLI) | payer MEDICARE ==
--- NOTE | 2019-02-21 15:22 | RAD ---
PA AND LATERAL CHEST: 02/21/19 COMPARISON: 09/29/18 study. HISTORY: Pleural effusion. Heart size is within normal limits. There are postop sternotomy. Right lung is clear of any infiltrat nancy process. There is a left sided slightly loculated appearing pleural effusion. There is a chest tu be in place. The catheter tip is near the posterior sulcus. There is an air fluid level seen directly posterior to the left hilar region. This could represent a cavity in this region. CT may be helpful in assessment. IMPRESSION: Moderate left pleural effusion with a pleural catheter in place. Air fluid levels seen posterior to t he left hilum could represent a cavitary lesion associated with this. CT may be helpful in further as sessment. POS: [facility]
== END 2019-02-21 14:14 | disposition home or self-care (01) ==
LOC: RAD 14:13
PROVIDERS: ATTEND Thoracic Surgery (Cardiothoracic Vascular Surgery)
DX: J90 Pleural effusion, not elsewhere classified (principal)
CPT/HCPCS: 71046